=== PATIENT | male | born 1990 | race Caucasian/White ===

== ENCOUNTER 2017-01-24 16:55 | Emergency (ER) | payer OTHER ==
--- NOTE | 2017-01-24 17:29 | CPEKG ---
Heart Rate: 80 RR Interval: 750 P-R Interval: 168 QRSD Interval: 104 QT Interval: 376 QTC Interval: 434 P [place]: 54 QRS [place]: 9 T Wave [place]: 25 EKG Severity - NORMAL ECG - EKG Impression: SINUS RHYTHM Electronically Signed By: Hunter Noble 24-Jan-2017 18:47:30
[2017-01-24] MEDS ORDERED: LORazepam 2 MG/ML INJ IVP ONE (17:47)
[2017-01-24] MEDS ORDERED: NS 1,000 ML IV ONE ×2 (17:47→18:19)
--- NOTE | 2017-01-24 17:50 | EDPHY ---
H & P Stated Complaint: cp/anxiety/panic stopped drinking 3 wks ago Time Seen by Provider: 01/24/17 17:19 HPI/ROS: CHIEF COMPLAINT: Chest pain, anxiety after workup supplemental HISTORY OF PRESENT ILLNESS: 26-year-old male quit heavy alcohol use 3 weeks ago , arrives via private vehicle with his father complaining of chest pain, anxiety , which started approximately 30 minutes after consuming a pre workout supplement containing "[employer]" which contains 300 mg of caffeine and other supplements. No cocaine use. No no recent alcohol use. No hallucination. No seizure. He has been seen at multiple other emergency departments for riding of complaints including headache, chest pain and had evaluation at that time including CT angiography of his head as recently as the past week which is negative REVIEW OF SYSTEMS: A ten point review of systems was performed and is negative with the exception of the items mentioned in the HPI PAST MEDICAL & SURGICAL HISTORY: Recently quit alcohol use SOCIAL HISTORY:history of alcoholism sober x3 weeks no cocaine use. FAMILY HISTORY: No family history of premature coronary artery disease PHYSICAL EXAM (Prior to examination, patient consented to physical exam, hands were washed and my usual and customary physical exam procedures followed) 1) GENERAL: Well-developed, well-nourished, alert and oriented. Appears anxious 2) HEAD: Normocephalic, atraumatic 3) HEENT: Pupils equal, round, reactive to light bilaterally. Sclera anicteric. 4) NECK: Full range of motion, no meningeal signs. No bruit 5) LUNGS: Clear auscultation bilaterally, no wheezes, no rhonchi, no retractions. 6) HEART: Regular rate and rhythm, no murmur, no heave, no gallop. 7) ABDOMEN: No guarding, no rebound, no focal tenderness, negative McBurney's, negative Navarro's, negative Rovsing's, negative peritoneal sign, 8) MUSCULOSKELETAL: Moving all extremities, no focal areas of tenderness, no obvious trauma. No peripheral edema or discoloration. Negative Homans no palpable cord 9) BACK: No CVA tenderness, no midline vertebral tenderness, no fluctuance, no step-off, no obvious trauma, no visual or palpable abnormality. 10) SKIN: No rash, no petechiae. 11) Psychiatric: Patient is oriented X 3, there is no agitation. DIFFERENTIAL DIAGNOSIS: in no particular include but limited to acute anxiety reaction to caffeine containing supplement, ME, PE, aortic dissection, pneumothorax - Personal History Current Tetanus/Diphtheria Vaccine: Unsure - Medical/Surgical History Hx Asthma: Yes Hx Chronic Respiratory Disease: No Hx Diabetes: No Hx Cardiac Disease: No Hx Renal Disease: No Hx Cirrhosis: No Hx Alcoholism: Yes Hx HIV/AIDS: No Hx Splenectomy or Spleen Trauma: No Other PMH: anxiety - Social History Smoking Status: Current every day smoker Constitutional: Initial Vital Signs Temperature (C) 36.8 C 01/24/17 17:05 Heart Rate 98 01/24/17 17:05 Respiratory Rate 22 H 01/24/17 17:05 Blood Pressure 157/115 H 01/24/17 17:05 O2 Sat (%) 99 01/24/17 17:05 O2 Delivery Mode Room Air Allergies/Adverse Reactions: No Known Allergies Allergy (Unverified 01/24/17 17:03) Home Medications: Medication Instructions Recorded Albuterol [Proventil Inhaler HFA 1 - 2 puffs IH Q4H PRN 01/24/17 (*)] Citalopram Hydrobromide [celeXA 10 10 mg PO DAILY 01/24/17 MG] Medical Decision Making - Diagnostics Imaging Results: Imaging Impressions Chest X-Ray 01/24/17 17:40 IMPRESSION: Normal chest x-ray. Imaging: I viewed and interpreted images myself ED Course/Re-evaluation: 7:40 p.m.: Patient was re-evaluated with serial examinations. Case discussed with secondary supervising position Dr. Noble in the ER. Patient was given IV hydration and IV Ativan and most recent evaluation at 7:30 p.m. he states that he is feeling much much better. Heart rate is in the 60s, he is not tachypneic, has no complaints of pain or discomfort, no dyspnea. We discussed the dangers of stimulant use and recommended against in the future. He has a negative D-dimer which headache adequately excludes pulmonary embolus in this patient who is low risk. I recommend he follow up with primary care provider. He is noted to have elevated H&H has been given aggressive hydration. Doubt rhabdomyolysis. He feels comfortable being discharged. - Data Points Laboratory Results: Laboratory Results 01/24/17 17:55 01/24/17 17:55 01/24/17 01/24/17 01/24/17 17:55 17:55 17:55 WBC 9.48 10^3/uL 10^3/uL (3.80-9.50) RBC 6.85 10^6/uL H 10^6/uL (4.40-6.38) Hgb 20.9 g/dL H* g/dL (13.7-17.5) Hct 60.5 % H* % (40.0-51.0) MCV 88.3 fL fL (81.5-99.8) MCH 30.5 pg pg (27.9-34.1) MCHC 34.5 g/dL g/dL (32.4-36.7) RDW 14.3 % % (11.5-15.2) Plt Count 226 10^3/uL 10^3/uL (150-400) MPV 10.2 fL fL (8.7-11.7) Neut % (Auto) 72.7 % % (39.3-74.2) Lymph % (Auto) 17.8 % % (15.0-45.0) [place] % (Auto) 7.9 % % (4.5-13.0) Eos % (Auto) 0.7 % % (0.6-7.6) Baso % (Auto) 0.4 % % (0.3-1.7) Nucleat RBC Rel Count 0.0 % % (0.0-0.2) Absolute Neuts (auto) 6.88 10^3/uL H 10^3/uL (1.70-6.50) Absolute Lymphs (auto) 1.69 10^3/uL 10^3/uL (1.00-3.00) Absolute Monos (auto) 0.75 10^3/uL 10^3/uL (0.30-0.80) Absolute Eos (auto) 0.07 10^3/uL 10^3/uL (0.03-0.40) Absolute Basos (auto) 0.04 10^3/uL 10^3/uL (0.02-0.10) Absolute Nucleated RBC 0.00 10^3/uL 10^3/uL (0-0.01) Immature Gran % 0.5 % % (0.0-1.1) Immature Gran # 0.05 10^3/uL 10^3/uL (0.00-0.10) D-Dimer < 0.27 ug/mLFEU ug/mLFEU (0.00-0.50) Sodium 142 mEq/L mEq/L (134-144) Potassium 4.0 mEq/L mEq/L (3.5-5.2) Chloride 109 mEq/L mEq/L (97-110) Carbon Dioxide 15 mEq/l L mEq/l (22-31) Anion Gap 18 mEq/L H mEq/L (8-16) BUN 14 mg/dL mg/dL (7-23) Creatinine 0.9 mg/dL mg/dL (0.7-1.3) Estimated GFR > 60 Glucose 95 mg/dL mg/dL (70-100) Calcium 10.6 mg/dL H mg/dL (8.5-10.4) Medications Given: Discontinued Medications Sodium Chloride (Ns) 1,000 mls @ 0 mls/hr IV ONCE ONE PRN Reason: Wide Open Stop: 01/24/17 17:48 Last Admin: 01/24/17 18:04 Dose: 1,000 mls Sodium Chloride (Ns) 1,000 mls @ 0 mls/hr IV ONCE ONE PRN Reason: Wide Open Stop: 01/24/17 18:20 Last Admin: 01/24/17 19:06 Dose: 1,000 mls Lorazepam (Ativan Injection) 1 mg IVP EDNOW ONE Stop: 01/24/17 17:48 Last Admin: 01/24/17 17:54 Dose: 2 mg Departure - Departure Disposition: Home, Routine, Self-Care Clinical Impression: stimulant use Chest pain Qualifiers: Chest pain type: other chest pain Qualified Code(s): R07.89 - Other chest pain Condition: Good Instructions: Chest Pain (ED) Additional Instructions: Avoid stimulant use, avoid energy drinks and caffeine the future. Call 911 if you develop new or return of symptoms Referrals: NONE *PRIMARY CARE P,. [Primary Care Provider] - As per Instructions [facility] ,. [Edm Groups for Call Sched] - 1-2 days without fail
[2017-01-24 18:12] LABS: % IMMATURE GRANULYOCYTES 0.5 % (0.0-1.1); ABSOLUTE IMMATURE GRANULOCYTES 0.05 10^3/uL (0.00-0.10); ADD DIFF? NO; ADD MORPH? NO; ADD SCAN? NO; ATYPICAL LYMPHOCYTE FLAG 0 (0-99); FRAGMENT RBC FLAG 0 (0-99); LEFT SHIFT FLG 0 (0-99); LIPEMIA HEMOLYSIS FLAG 90 (0-99); MEAN CELL HEMOGLOBIN 30.5 pg (27.9-34.1); MEAN CELL HEMOGLOBIN CONCENTR. 34.5 g/dL (32.4-36.7); MEAN CELL VOLUME 88.3 fL (81.5-99.8); MEAN PLATELET VOLUME 10.2 fL (8.7-11.7); PLATELET CLUMPS FLAG 0 (0-99); PLATELET COUNT 226 10^3/uL (150-400); RED BLOOD CELL COUNT 6.85 10^6/uL (4.40-6.38); RED CELL DISTRIBUTION WIDTH 14.3 % (11.5-15.2)
[2017-01-24 18:14] LABS: HEMATOCRIT 60.5 % (40.0-51.0); HEMOGLOBIN 20.9 g/dL (13.7-17.5)
[2017-01-24 18:28] LABS: ANION GAP 18 mEq/L (8-16); CALCIUM 10.6 mg/dL (8.5-10.4); CARBON DIOXIDE 15 mEq/l (22-31); CHLORIDE 109 mEq/L (97-110); CREATININE 0.9 mg/dL (0.7-1.3); GLOMERULAR FILTRATION RATE > 60; GLUCOSE 95 mg/dL (70-100); SODIUM 142 mEq/L (134-144)
[2017-01-24 20:05] VITALS: O2SAT 97
[2017-01-24 20:06] VITALS: BP 139/90; PULSE 79; RESP 16
[2017-01-24 20:07] VITALS: TEMP 97.9
== END 2017-01-24 20:07 | disposition home or self-care (01) ==
LOC: EDSEX 16:55
DX: F15.90 Other stimulant use, unspecified, uncomplicated (principal); R07.89 Other chest pain; J45.909 Unspecified asthma, uncomplicated; F17.200 Nicotine dependence, unspecified, uncomplicated; E83.52 Hypercalcemia
CPT/HCPCS: 96374; J2060